=== PATIENT | male | born 1990 | race Caucasian/White ===

== ENCOUNTER 2020-08-16 12:32 | Emergency (ER) | payer OTHER ==
[~2020-08-16] VITALS: Ht 188 cm; Wt 88.5 kg
[2020-08-16 12:51] VITALS: BP 140/81
[2020-08-16] MEDS ORDERED: KETOROLAC TROMETH 30 MG/ML 1ML VIAL IV ONE (13:15)
[2020-08-16] MEDS ORDERED: cefTRIAXone 1GM/50ML D5W 50 ML IV ONE (13:15)
[2020-08-16] MEDS ORDERED: PIPERACILLIN-TAZOB 3.375GM 100 ML IV ONE (13:15)
[2020-08-16] MEDS ORDERED: ACETAMINOPHEN 500 MG TAB PO ONE (13:20)
[2020-08-16] MEDS ORDERED: PANTOPRAZOLE 40 MG TAB PO ONE (13:20)
[2020-08-16 13:37] LABS: Basophils # (auto) 0 10 ^3/uL (0-0.2); Basophils % (auto) 0.2 % (0.0-2.0); Eosinophils # (auto) 0.1 10 ^3/uL (0-0.8); Eosinophils % (auto) 1.5 % (0.0-7.0); Hematocrit 45.4 % (41.0-53.0); Hemoglobin 15.3 g/dL (13.5-17.5); Lymphocytes # (auto) 1.7 10 ^3/uL (0.4-5.4); Lymphocytes % (auto) 20.3 % (10.0-50.0); Mean Corpuscular Hemoglobin 30.3 pg (28.0-32.0); Mean Corpuscular Hgb Conc. 33.7 g/dL (32.0-36.0); Monocytes # (auto) 0.8 10 ^3/uL (0-1.3); Monocytes % (auto) 9.5 % (0.0-12.0); Neutrophils # (auto) 5.7 10 ^3/uL (1.6-8.6); Neutrophils % (auto) 68.5 % (37.0-80.0); Platelet Count (auto) 200 10^3/uL (140-450); Red Blood Cells 5.04 10^6/uL (4.5-5.90); Red Cell Distribution Width 13.6 % (11.8-14.3); White Blood Cell 8.3 10^3/uL (4.4-10.8)
[2020-08-16 13:55] LABS: BUN/Creatinine Ratio 17.5; Calcium 8.7 mg/dL (8.5-10.1); Potassium 4.1 mmol/L (3.5-5.1)
== END 2020-08-16 14:35 | disposition home or self-care (01) ==
LOC: ER 12:32
DX: S51.852D Open bite of left forearm, subsequent encounter (principal); L03.114 Cellulitis of left upper limb; L08.9 Local infection of the skin and subcutaneous tissue, unspecified; W54.0XXD Bitten by dog, subsequent encounter
CPT/HCPCS: 36415; 80048; 85025; 96365; 96368; 96375; 99284; J0696; J1885; J2543

== ENCOUNTER 2020-08-17 11:00 | Emergency (ER) | payer OTHER ==
[~2020-08-17] VITALS: Ht 188 cm; Wt 88.5 kg
[2020-08-17 11:16] VITALS: BP 135/84
[2020-08-17] MEDS ORDERED: cefTRIAXone 1GM/50ML D5W 50 ML IV ONE (11:30)
[2020-08-17] MEDS ORDERED: CLINDAMYCIN 900MG IV 50 ML IV ONE (11:30)
== END 2020-08-17 12:10 | disposition home or self-care (01) ==
LOC: ER 11:00
DX: S51.832D Puncture wound without foreign body of left forearm, subsequent encounter (principal); W54.0XXD Bitten by dog, subsequent encounter
CPT/HCPCS: 96374; 99283; J0696

== ENCOUNTER 2020-08-18 12:56 | Inpatient (IN) | payer OTHER ==
[~2020-08-18] VITALS: Ht 190.5 cm; Wt 83.3 kg
[2020-08-18] MEDS ORDERED: CLINDAMYCIN 600MG IV 50 ML IV ONE (15:00)
[2020-08-18] MEDS ORDERED: KETOROLAC TROMETH 30 MG/ML 1ML VIAL IV ONE (15:00)
[2020-08-18 16:47] LABS: Basophils # (auto) 0 10 ^3/uL (0-0.2); Basophils % (auto) 0.5 % (0.0-2.0); Eosinophils # (auto) 0.2 10 ^3/uL (0-0.8); Eosinophils % (auto) 2.2 % (0.0-7.0); Hematocrit 47.9 % (41.0-53.0); Hemoglobin 16.1 g/dL (13.5-17.5); Lymphocytes # (auto) 1.9 10 ^3/uL (0.4-5.4); Lymphocytes % (auto) 25.6 % (10.0-50.0); Mean Corpuscular Hemoglobin 30.1 pg (28.0-32.0); Mean Corpuscular Hgb Conc. 33.7 g/dL (32.0-36.0); Mean Corpuscular Volume 89.5 fL (80.0-100.0); Monocytes # (auto) 0.6 10 ^3/uL (0-1.3); Monocytes % (auto) 7.5 % (0.0-12.0); Neutrophils # (auto) 4.9 10 ^3/uL (1.6-8.6); Neutrophils % (auto) 64.2 % (37.0-80.0); Platelet Count (auto) 259 10^3/uL (140-450); Red Blood Cells 5.35 10^6/uL (4.5-5.90); Red Cell Distribution Width 13.4 % (11.8-14.3); White Blood Cell 7.6 10^3/uL (4.4-10.8)
[2020-08-18 17:11] LABS: Albumin 3.7 g/dL (3.4-5.0); Calcium 8.8 mg/dL (8.5-10.1); Potassium 3.7 mmol/L (3.5-5.1)
[2020-08-18 17:14] LABS: BUN/Creatinine Ratio 14.1; Bilirubin, Total 0.4 mg/dL (0.2-1.0); Total Protein 7.5 g/dL (6.4-8.2)
[2020-08-18] MEDS ORDERED: MORPHINE SULF INJ 2 MG/ML SYRINGE 1ML IV PRN (17:15)
[2020-08-18] MEDS ORDERED: DOCUSATE SOD 100 MG CAP PO PRN (17:15)
[2020-08-18] MEDS ORDERED: ACETAMINOPHEN 500 MG TAB PO PRN (17:15)
[2020-08-18] MEDS ORDERED: ONDANSETRON HCL 4 MG/2 ML VIAL IV PRN (17:15)
[2020-08-18] MEDS ORDERED: SODIUM CHLORIDE 0.9% 1,000 ML IV SCH (17:15)
[2020-08-18] MEDS: cefTRIAXone 1GM/50ML D5W 50 ML IV SCH (18:09)
[2020-08-18] MEDS: CLINDAMYCIN 300MG IV 50 ML IV SCH (21:46)
[2020-08-19 00:21] VITALS: BP 148/90
[2020-08-19] MEDS: HYDROcodone-ACET 5/325MG TAB PO PRN ×2 (00:43→19:48)
[2020-08-19 05:00] VITALS: BP 128/77
[2020-08-19] MEDS: CLINDAMYCIN 300MG IV 50 ML IV SCH ×3 (06:17→21:20)
[2020-08-19 08:46] VITALS: BP 126/79
[2020-08-19] MEDS: cefTRIAXone 1GM/50ML D5W 50 ML IV SCH (09:00)
[2020-08-19] MEDS: FAMOTIDINE 20 MG TAB PO SCH (10:00)
--- NOTE | 2020-08-19 11:45 | NUR ---
WOUND CARE NOTE: WOUND CARE IN TO SEE PATIENT AT THIS TIME PER BEDSIDE NURSE REQUEST AND PHOTOGRAPHS OF WOUNDS. [facility]LLUL[facility]. BEDSIDE NURSE NOTED SKIN INTEGRITY ISSUES UPON ADMISSION. PHOTOGRAPHS TAKEN AT THAT TIME FOR REFERENCE. PATIENT NATALIE SCORE IS 22. PATIENT NOTED TO HAVE MULTIPLE ABRASIONS AND SKIN TEARS TO BILATERAL ARMS FROM A DOG BITE ON 08/14/2020. SEVERAL SKIN TEARS HAD PREVIOUSLY BEEN SUTURED. PATIENT ALSO NOTED WITH LEFT ARM CELLULITIS. ABRASIONS AND SKIN TEARS APPEAR WELL HEALED AT THIS TIME. NO INTERVENTION TAKEN. RECOMMEND: RECONSULT WOUND CARE IF PATIENT NATALIE SCORE DECREASES OR WOUNDS BECOME OPEN. Addendum: 08/19/20 at 1609 by TOMAS REED RN RN Amended: Links added.
--- NOTE | 2020-08-19 19:35 | NUR ---
Opening Shift Note Assumed care of patient, awake and alert x 4. No S/S of distress/SOB. Bed is in lowest position and locked. Call light within reach. Board updated. Instructed on POC and to call for assist PRN, will continue to monitor for changes Q1hr and PRN.
[2020-08-19 21:00] VITALS: BP 138/77
--- NOTE | 2020-08-19 23:20 | NUR ---
ASSUMED PATIENT CARE RECEIVED REPORT FROM MANJU STREETER FOR CHANGE OF ASSIGNMENT. PATIENT IS COMFORTABLE IN BED. DISCUSSED POC WITH PATIENT AND INSTRUCTED PATIENT TO CALL PRN; PATIENT VERBALIZED UNDERSTANDING. WILL CONTINUE TO MONITOR Q1H AND PRN. PATIENT IN BED, BED IS LOCKED AT LOWEST POSITION, BED RAILS UP X2. NO S/SX OF DISTRESS OR SOB. PATIENT DENIES PAIN AT THIS TIME.
--- NOTE | 2020-08-19 23:20 | NUR ---
Care endorsed to FERDINAND Gomez. Patient asleep, showing no signs of distress at this time.
--- NOTE | 2020-08-20 02:00 | NUR ---
ROUNDS PATIENT IS COMFORTABLE IN BED. NO S/SX OF DISTRESS, SOB OR PAIN.
[2020-08-20 05:00] VITALS: BP 120/76
[2020-08-20] MEDS: CLINDAMYCIN 300MG IV 50 ML IV SCH ×3 (06:16→13:44)
--- NOTE | 2020-08-20 07:20 | NUR ---
CLOSING NOTE - NOC SHIFT ENDORSED PATIENT CARE TO DAY SHIFT NURSE PATRICIA STREETER. PATIENT IS COMFORTABLE IN BED. NO S/SX OF DISTRESS, SOB OR PAIN. INSTRUCTED PATIENT TO CALL USING CALL LIGHT PRN. CALL LIGHT WITHIN REACH.
[2020-08-20] MEDS: cefTRIAXone 1GM/50ML D5W 50 ML IV SCH (08:40)
--- NOTE | 2020-08-20 09:04 | NUR ---
Assessment Patient is a 30-year-old male who is alert and oriented. Prior to admission patient lived home with family and functioned independently. Prior to admission patient could care for his own ADL's. 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 Patient state he was then seen by work comp physician who gave him an antibiotic but the pain and the swelling has not gone away. Patient states he has insurance with [employer]. Advised patient there is a social service consult for home health services with IV abx. Informed patient JEFFY Guzman will complete MD order and IV abx is still pending from MD and once we have a clear order from doctor, JEFFY Guzman will be able to fulfil order. Patient informed me he can be teachable and his can also assist with the IV abx. Informed patient he has the right to participate in all discharge planning. Patient does not have an advance directive. Patient has been provided with information for an advanced directive. Patient verbalized understanding and agrees to discharge plan. Addendum: 08/20/20 at 0916 by HERMINIO NATION Amended: Links added.
--- NOTE | 2020-08-20 09:32 | NUR ---
Spoke with Khanh STREETER regarding the SS consult for IV antibiotics, stated the patient is being discharged on po antibiotics.
[2020-08-20] MEDS: HYDROcodone-ACET 5/325MG TAB PO PRN (09:41)
[2020-08-20] MEDS: FAMOTIDINE 20 MG TAB PO SCH (10:00)
[2020-08-20 10:30] VITALS: BP 128/75
[2020-08-20 13:13] VITALS: BP 128/75
--- NOTE | 2020-08-20 15:45 | NUR ---
Patient discharged to home to continue abx therapy PO. Final wound photos taken. Prescriptions received by patient. IV removed intact. VS WNL. Discharge instructions received by patient.
== END 2020-08-20 13:45 | disposition home or self-care (01) | DRG 603 ==
LOC: ER 12:56 → OVERFLOW 17:15 → WEST WING 23:47 → CENTRAL 08-19 16:05
PROVIDERS: ADMIT Nurse Practitioner Acute Care; ATTEND Family Medicine
DX: L03.114 Cellulitis of left upper limb (principal); L03.113 Cellulitis of right upper limb; S51.852A Open bite of left forearm, initial encounter; S51.851A Open bite of right forearm, initial encounter; Z20.828 Contact with and (suspected) exposure to other viral communicable diseases; W54.0XXA Bitten by dog, initial encounter; Y93.89 Activity, other specified; Y92.89 Other specified places as the place of occurrence of the external cause; Y99.8 Other external cause status
CPT/HCPCS: 36415; 80053; 85025; 87040; 87205; 87426; 96365; 96375; G0378; J0696; J1885; J3490

== ENCOUNTER → 2020-09-23 | Outpatient (CLI) | payer BC ==
[2020-09-23 07:32] LABS: Basophils # (auto) 0 10 ^3/uL (0-0.2); Basophils % (auto) 0.6 % (0.0-2.0); Eosinophils # (auto) 0.1 10 ^3/uL (0-0.8); Eosinophils % (auto) 2.6 % (0.0-7.0); Hematocrit 45.8 % (41.0-53.0); Hemoglobin 15.8 g/dL (13.5-17.5); Lymphocytes # (auto) 1.7 10 ^3/uL (0.4-5.4); Lymphocytes % (auto) 31.9 % (10.0-50.0); Mean Corpuscular Hemoglobin 30.6 pg (28.0-32.0); Mean Corpuscular Hgb Conc. 34.6 g/dL (32.0-36.0); Mean Corpuscular Volume 88.5 fL (80.0-100.0); Monocytes # (auto) 0.4 10 ^3/uL (0-1.3); Monocytes % (auto) 7.5 % (0.0-12.0); Neutrophils % (auto) 57.4 % (37.0-80.0); Red Blood Cells 5.17 10^6/uL (4.5-5.90); Red Cell Distribution Width 13.3 % (11.8-14.3); White Blood Cell 5.2 10^3/uL (4.4-10.8)
[2020-09-23 08:26] LABS: Albumin 3.7 g/dL (3.4-5.0); Calcium 8.4 mg/dL (8.5-10.1); Potassium 4.2 mmol/L (3.5-5.1)
[2020-09-23 08:30] LABS: Bilirubin, Total 0.8 mg/dL (0.2-1.0); Total Protein 7.3 g/dL (6.4-8.2)
== END | disposition home or self-care (01) ==
LOC: LAB 07:05
PROVIDERS: ATTEND Internal Medicine
DX: Z00.00 Encounter for general adult medical examination without abnormal findings (principal)
CPT/HCPCS: 36415; 80053; 80061; 84443; 85025

== ENCOUNTER → 2022-02-10 | Outpatient (CLI) | payer BC ==
[2022-02-10 10:23] LABS: Basophils # (auto) 0.3 10 ^3/uL (0-0.2); Basophils % (auto) 4.8 % (0.0-2.0); Eosinophils # (auto) 0.1 10 ^3/uL (0-0.8); Eosinophils % (auto) 1.8 % (0.0-7.0); Hematocrit 46.8 % (41.0-53.0); Hemoglobin 16.1 g/dL (13.5-17.5); Lymphocytes # (auto) 1.6 10 ^3/uL (0.4-5.4); Lymphocytes % (auto) 28.6 % (10.0-50.0); Mean Corpuscular Hemoglobin 30.8 pg (28.0-32.0); Mean Corpuscular Hgb Conc. 34.5 g/dL (32.0-36.0); Mean Corpuscular Volume 89.3 fL (80.0-100.0); Monocytes # (auto) 0.3 10 ^3/uL (0-1.3); Neutrophils # (auto) 3.3 10 ^3/uL (1.6-8.6); Neutrophils % (auto) 58.8 % (37.0-80.0); Nucleated Red Blood Cells % 0.1 %; Red Blood Cells 5.24 10^6/uL (4.5-5.90); Red Cell Distribution Width 13.9 % (11.8-14.3); White Blood Cell 5.6 10^3/uL (4.4-10.8)
[2022-02-10 10:54] LABS: Potassium 4.2 mmol/L (3.5-5.1)
[2022-02-10 11:03] LABS: BUN/Creatinine Ratio 20.2; CRP High Sensitivity 0.06 mg/dL (< 0.3); Calcium 8.5 mg/dL (8.5-10.1)
== END | disposition home or self-care (01) ==
LOC: LAB 10:02
PROVIDERS: ATTEND Orthopaedic Surgery
DX: R22.42 Localized swelling, mass and lump, left lower limb (principal)
CPT/HCPCS: 36415; 80048; 85025; 85652; 86141

== ENCOUNTER 2022-10-28 07:24 | Emergency (ER) | payer BC ==
[~2022-10-28] VITALS: Ht 188 cm; Wt 90.5 kg
[2022-10-28] MEDS ORDERED: ONDANSETRON HCL 4 MG/2 ML VIAL IV ONE (07:45)
[2022-10-28] MEDS ORDERED: SODIUM CHLORIDE 0.9% 1,000 ML IV ONE (07:45)
[2022-10-28] MEDS ORDERED: HYDROmorphone HCL 2 MG/ML VL/or syr IV ONE (07:45)
[2022-10-28 08:07] LABS: Basophils # (auto) 0 10 ^3/uL (0-0.2); Basophils % (auto) 0.7 % (0.0-2.0); Eosinophils # (auto) 0.1 10 ^3/uL (0-0.8); Eosinophils % (auto) 2.3 % (0.0-7.0); Hematocrit 46.8 % (41.0-53.0); Hemoglobin 16.6 g/dL (13.5-17.5); Lymphocytes # (auto) 1.8 10 ^3/uL (0.4-5.4); Lymphocytes % (auto) 32.4 % (10.0-50.0); Mean Corpuscular Hemoglobin 31.5 pg (28.0-32.0); Mean Corpuscular Hgb Conc. 35.5 g/dL (32.0-36.0); Mean Corpuscular Volume 88.6 fL (80.0-100.0); Monocytes # (auto) 0.4 10 ^3/uL (0-1.3); Monocytes % (auto) 7.2 % (0.0-12.0); Neutrophils # (auto) 3.2 10 ^3/uL (1.6-8.6); Neutrophils % (auto) 57.4 % (37.0-80.0); Nucleated Red Blood Cells % 0.2 %; Red Blood Cells 5.28 10^6/uL (4.5-5.90); Red Cell Distribution Width 13.4 % (11.8-14.3); White Blood Cell 5.5 10^3/uL (4.4-10.8)
[2022-10-28 08:27] LABS: Albumin 3.8 g/dL (3.4-5.0); Calcium 8.5 mg/dL (8.5-10.1)
[2022-10-28 08:31] LABS: BUN/Creatinine Ratio 14.5; Bilirubin, Total 0.7 mg/dL (0.2-1.0); Total Protein 7.2 g/dL (6.4-8.2)
[2022-10-28] MEDS ORDERED: TAMSULOSIN HYDROCHLORIDE 0.4 MG CAP PO ONE (09:30)
[2022-10-28] MEDS ORDERED: PERCOT PO (09:31)
[2022-10-28] MEDS ORDERED: TAM04C PO (09:31)
[2022-10-28] MEDS ORDERED: NITR-87 PO (09:31)
[2022-10-28] MEDS ORDERED: ONDA-144 PO (09:31)
[2022-10-28 09:40] LABS: Urine Bacteria NONE SEEN /hpf (None Seen); Urine Blood 3+ /uL (Negative); Urine Mucus FEW (None Seen); Urine Specific Gravity 1.021 (1.001-1.035); Urine WBC <1 /hpf (0 - 3)
[2022-10-28 09:47] VITALS: BP 140/80
== END 2022-10-28 09:50 | disposition home or self-care (01) ==
LOC: ER 07:24
DX: N20.0 Calculus of kidney (principal); R07.89 Other chest pain
CPT/HCPCS: 36415; 71045; 74176; 80053; 81001; 83690; 85025; 96361; 96374; 96375; 99285; J1170; J2405; J7030

== ENCOUNTER → 2023-08-17 | Outpatient (CLI) | payer BC ==
[~2023-08-17] MED LIST: NITR-87 PO; ONDA-144 PO; PERCOT PO; TAMS-35 PO
[2023-08-17 07:42] LABS: Basophils # (auto) 0 10 ^3/uL (0-0.2); Basophils % (auto) 0.4 % (0.0-2.0); Eosinophils # (auto) 0.2 10 ^3/uL (0-0.8); Eosinophils % (auto) 2.5 % (0.0-7.0); Hematocrit 48.2 % (41.0-53.0); Hemoglobin 16.3 g/dL (13.5-17.5); Lymphocytes # (auto) 2.1 10 ^3/uL (0.4-5.4); Lymphocytes % (auto) 32.8 % (10.0-50.0); Mean Corpuscular Hgb Conc. 33.7 g/dL (32.0-36.0); Mean Corpuscular Volume 88.8 fL (80.0-100.0); Monocytes # (auto) 0.6 10 ^3/uL (0-1.3); Monocytes % (auto) 8.8 % (0.0-12.0); Neutrophils # (auto) 3.5 10 ^3/uL (1.6-8.6); Neutrophils % (auto) 55.5 % (37.0-80.0); Nucleated Red Blood Cells % 0.1 %; Red Blood Cells 5.43 10^6/uL (4.5-5.90); Red Cell Distribution Width 13.5 % (11.8-14.3); White Blood Cell 6.3 10^3/uL (4.4-10.8)
[2023-08-17 07:54] LABS: Urine Bacteria NONE SEEN /hpf (None Seen); Urine Blood Negative /uL (Negative); Urine Clarity Clear (Clear); Urine Color Colorless (Yellow); Urine Protein, UAD Negative (Negative); Urine Specific Gravity 1.017 (1.001-1.035); Urine Urobilinogen Normal (Negative); Urine WBC 1 /hpf (0 - 3)
[2023-08-17 08:13] LABS: Alanine Aminotransferase 50 U/L (7-40); Albumin 4.4 g/dL (3.2-4.8); Alkaline Phosphatase 92 U/L (46-116); Anion Gap 5 (5-15); Aspartate Aminotransferase 24 U/L (13-40); BUN/Creatinine Ratio 15.3 (10.0-20.0); Blood Urea Nitrogen 15 mg/dL (9-23); Calcium 9.2 mg/dL (8.5-10.1); Carbon Dioxide 28 mmol/L (20-30); Chloride 108 mmol/L (98-107); Glucose 99 mg/dL (74-106); Potassium 4.1 mmol/L (3.5-5.1); Sodium 141 mmol/L (136-145); Triglycerides 85 mg/dL (< 150)
[2023-08-17 08:14] LABS: Cholesterol 193 mg/dL (< 200); LDL Cholesterol 149 mg/dL (< 100)
[2023-08-17 08:15] LABS: HDL Cholesterol 41 mg/dL (40-59); Total Protein 6.9 g/dL (5.7-8.2)
== END | disposition home or self-care (01) ==
LOC: LAB 07:17
PROVIDERS: ATTEND Internal Medicine
DX: Z00.01 Encounter for general adult medical examination with abnormal findings (principal); Z83.3 Family history of diabetes mellitus; E78.5 Hyperlipidemia, unspecified
CPT/HCPCS: 36415; 80053; 80061; 81001; 83036; 84439; 84443; 85025

== ENCOUNTER 2024-03-18 13:37 | Inpatient (IN) | payer BC ==
[~2024-03-18] VITALS: Ht 185.4 cm; Wt 97.9 kg
[2024-03-18 14:30] LABS: Urine Bacteria None Seen /hpf (None Seen)
[2024-03-18 14:31] LABS: Basophils # (auto) 0 10 ^3/uL (0-0.2); Basophils % (auto) 0.2 % (0.0-2.0); Eosinophils # (auto) 0.2 10 ^3/uL (0-0.8); Eosinophils % (auto) 2.6 % (0.0-7.0); Hematocrit 45.6 % (41.0-53.0); Hemoglobin 15.5 g/dL (13.5-17.5); Lymphocytes # (auto) 1.8 10 ^3/uL (0.4-5.4); Lymphocytes % (auto) 27.7 % (10.0-50.0); Mean Corpuscular Hemoglobin 30.6 pg (28.0-32.0); Mean Corpuscular Volume 89.9 fL (80.0-100.0); Monocytes # (auto) 0.4 10 ^3/uL (0-1.3); Monocytes % (auto) 6.7 % (0.0-12.0); Neutrophils # (auto) 4.1 10 ^3/uL (1.6-8.6); Neutrophils % (auto) 62.8 % (37.0-80.0); Nucleated Red Blood Cells % 0.1 %; Red Blood Cells 5.08 10^6/uL (4.5-5.90); Red Cell Distribution Width 13.7 % (11.8-14.3); White Blood Cell 6.5 10^3/uL (4.4-10.8)
[2024-03-18 14:37] LABS: Chloride 108 mmol/L (98-107); Potassium 4.2 mmol/L (3.5-5.1); Sodium 142 mmol/L (136-145)
[2024-03-18 14:38] LABS: Anion Gap 6 (5-15); Carbon Dioxide 28 mmol/L (20-30)
[2024-03-18 14:39] LABS: Calcium 9.3 mg/dL (8.7-10.4)
[2024-03-18 14:43] LABS: BUN/Creatinine Ratio 11.9 (10.0-20.0); Blood Urea Nitrogen 12 mg/dL (9-23); Glucose 117 mg/dL (74-106)
[2024-03-18 14:44] LABS: Urine Blood 3+ /uL (Negative); Urine Clarity Hazy (Clear); Urine Color Yellow (Yellow); Urine Mucus FEW (None Seen); Urine Protein, UAD TRACE (Negative); Urine Urobilinogen Normal (Negative); Urine WBC 1 /hpf (0 - 3); Urine pH 5.5 (5.0-9.0)
[2024-03-18 16:00] VITALS: PULSE 88; RESP 16; O2SAT 97
[2024-03-18] MEDS: KETOROLAC TROMETH 30 MG/ML 1ML VIAL IV ONE (16:07)
[2024-03-18] MEDS: SODIUM CHLORIDE 0.9% 1,000 ML IV ONE ×2 (16:07→18:30)
[2024-03-18] MEDS: TAMSULOSIN HYDROCHLORIDE 0.4 MG CAP PO ONE (17:48)
[2024-03-18] MEDS: ONDANSETRON HCL 4 MG/2 ML VIAL IV ONE (17:48)
[2024-03-18] MEDS: MORPHINE SULFATE 4 MG/ML SYR/VIAL IV ONE ×2 (17:48→20:24)
[2024-03-18 18:17] VITALS: RESP 16; O2SAT 99
[2024-03-18] MEDS ORDERED: ACETAMINOPHEN 325 MG TAB PO PRN (20:30)
[2024-03-18] MEDS ORDERED: DOCUSATE SOD 100 MG CAP PO PRN (20:30)
[2024-03-18] MEDS ORDERED: ONDANSETRON HCL 4 MG/2 ML VIAL IV PRN (20:30)
[2024-03-18] MEDS: SODIUM CHLOR 0.9% PF (SALINE LOCK) 10ML VIAL/SYR IV SCH (21:29)
[2024-03-18 22:47] VITALS: BP 130/84; PULSE 68; RESP 20; TEMP 98.3; O2SAT 97
[2024-03-18 23:16] VITALS: PULSE 70; RESP 17; O2SAT 97
[2024-03-19] VITALS (9 sets, daily range): BP systolic 115–135; BP diastolic 73–87; PULSE 48–80; RESP 16–21; TEMP 97.3–99.5; O2SAT 0–96
[2024-03-19] MEDS: HYDROcodone-ACET 5/325MG TAB PO PRN (03:29)
[2024-03-19] MEDS: TAMSULOSIN HYDROCHLORIDE 0.4 MG CAP PO SCH (08:57)
[2024-03-19] MEDS: ENOXAPARIN SOD 40 MG/0.4 ML SYRINGE SC SCH (08:58)
[2024-03-20] VITALS (7 sets, daily range): BP systolic 107–147; BP diastolic 73–88; PULSE 53–69; RESP 18–20; TEMP 97.7–98.6; O2SAT 0–97
== END 2024-03-20 18:15 | disposition home or self-care (01) | DRG 694 ==
LOC: ER 13:37 → OVERFLOW 20:19 → WEST WING 22:13
PROVIDERS: ADMIT Internal Medicine; ATTEND Family Medicine
DX: N20.2 Calculus of kidney with calculus of ureter (principal); N21.0 Calculus in bladder; E86.0 Dehydration
CPT/HCPCS: 36415; 74018; 74176; 80048; 81001; 85025; G0378; J1885; J2405

== ENCOUNTER → 2024-03-28 | Outpatient (CLI) | payer BC ==
[2024-03-28 10:19] LABS: Urine Bacteria None Seen /hpf (None Seen)
[2024-03-28 10:22] LABS: Basophils # (auto) 0 10 ^3/uL (0-0.2); Basophils % (auto) 0.5 % (0.0-2.0); Eosinophils # (auto) 0.1 10 ^3/uL (0-0.8); Eosinophils % (auto) 1.7 % (0.0-7.0); Hematocrit 48.5 % (41.0-53.0); Hemoglobin 16.5 g/dL (13.5-17.5); Lymphocytes # (auto) 1.9 10 ^3/uL (0.4-5.4); Lymphocytes % (auto) 30.5 % (10.0-50.0); Mean Corpuscular Hemoglobin 30.1 pg (28.0-32.0); Mean Corpuscular Hgb Conc. 34.1 g/dL (32.0-36.0); Mean Corpuscular Volume 88.3 fL (80.0-100.0); Monocytes # (auto) 0.5 10 ^3/uL (0-1.3); Monocytes % (auto) 7.6 % (0.0-12.0); Neutrophils # (auto) 3.7 10 ^3/uL (1.6-8.6); Neutrophils % (auto) 59.7 % (37.0-80.0); Nucleated Red Blood Cells % 0.1 %; Red Blood Cells 5.49 10^6/uL (4.5-5.90); Red Cell Distribution Width 13.4 % (11.8-14.3); White Blood Cell 6.3 10^3/uL (4.4-10.8)
[2024-03-28 10:28] LABS: Urine Blood Negative /uL (Negative); Urine Clarity Clear (Clear); Urine Color Light-Yellow (Yellow); Urine Mucus FEW (None Seen); Urine Protein, UAD Negative (Negative); Urine Specific Gravity 1.012 (1.001-1.035); Urine Urobilinogen Normal (Negative); Urine WBC <1 /hpf (0 - 3); Urine pH 5.5 (5.0-9.0)
[2024-03-28 10:56] LABS: Alanine Aminotransferase 45 U/L (7-40); Albumin 4.4 g/dL (3.2-4.8); Alkaline Phosphatase 95 U/L (46-116); Anion Gap 5 (5-15); Aspartate Aminotransferase 16 U/L (13-40); BUN/Creatinine Ratio 10.6 (10.0-20.0); Blood Urea Nitrogen 10 mg/dL (9-23); Calcium 9.5 mg/dL (8.7-10.4); Carbon Dioxide 27 mmol/L (20-30); Chloride 108 mmol/L (98-107); Cholesterol 173 mg/dL (< 200); Glucose 97 mg/dL (74-106); HDL Cholesterol 41 mg/dL (40-59); LDL Cholesterol 128 mg/dL (< 100); Potassium 4.5 mmol/L (3.5-5.1); Sodium 140 mmol/L (136-145); Triglycerides 69 mg/dL (< 150)
[2024-03-28 10:57] LABS: Bilirubin, Total 0.9 mg/dL (0.2-1.0); Total Protein 6.9 g/dL (5.7-8.2)
== END | disposition home or self-care (01) ==
LOC: LAB 10:08
PROVIDERS: ATTEND Internal Medicine
DX: Z00.01 Encounter for general adult medical examination with abnormal findings (principal); Z13.1 Encounter for screening for diabetes mellitus; E78.2 Mixed hyperlipidemia; R74.01 Elevation of levels of liver transaminase levels; K76.0 Fatty (change of) liver, not elsewhere classified
CPT/HCPCS: 36415; 80053; 80061; 81001; 83036; 84439; 84443; 85025